=== PATIENT | male | born 1935 | race Caucasian/White ===

== ENCOUNTER 2022-04-24 09:08 | Emergency (ER) | payer OTHER ==
[~2022-04-24] VITALS: Ht 172.7 cm; Wt 68.0 kg
[~2022-04-24 09:08] MED LIST: ACET-2634 PO; ASPI-524 PO; CARB1TAB10 PO; LISI20TA PO; METF-379 PO; METO-542 PO; NIFE60TA2 PO; SELE5TAB6 PO; SIMV-46 PO
--- NOTE | 2022-04-24 09:30 | NUR ---
Patient to ER bed 3 to gown for evaluation. Side rails up. Report given to FRANCIE KAYE.
--- NOTE | 2022-04-24 09:30 | NUR ---
Patient to ER bed 3 to gown for evaluation. Side rails up. Dr. Shanks at bedside examining the patient.
[2022-04-24 09:37] VITALS: BP_SYST 134
--- NOTE | 2022-04-24 09:43 | NUR ---
PATIENT CAME IN TODAY, COMPLAINED THAT AFTER HE HAD HIS BREAKFAST, STOOD UP, GOT DIZZY AND DROPPED, LEANING TOWARD THE RIGHT SIDE OF HIS BODY. SKIN TEAR TO RIGHT ELBOW NOTED.
--- NOTE | 2022-04-24 09:46 | NUR ---
TRANSPORTED VIA WHEELCHAIR TO RADIOLOGY DEPT.
--- NOTE | 2022-04-24 10:04 | NUR ---
RETURNED TO BED 3.
--- NOTE | 2022-04-24 12:11 | NUR ---
Pt is laying in bed without complaint, rails up bed down. VSS
--- NOTE | 2022-04-24 12:17 | NUR ---
Pt saturation 88% administered 2 liters nasal canula: oxygen saturation 97% hr 73 bp 121/83. Pt NAD.
[2022-04-24 12:57] VITALS: BP_SYST 134
--- NOTE | 2022-04-24 12:59 | NUR ---
Patient given written and verbal discharge instructions and verbalizes understanding. ER MD discussed with patient the results and treatment provided. Patient in stable condition. ID arm band removed. IV catheter removed intact and dressing applied, no active bleeding. Opportunity for questions provided and answered. Medication side effect fact sheet provided.
== END 2022-04-24 12:57 | disposition home or self-care (01) ==
LOC: SED 09:08
DX: S50.01XA Contusion of right elbow, initial encounter (principal); S09.90XA Unspecified injury of head, initial encounter; E11.9 Type 2 diabetes mellitus without complications; I10 Essential (primary) hypertension; Z79.899 Other long term (current) drug therapy; W18.30XA Fall on same level, unspecified, initial encounter; Y93.89 Activity, other specified; Y92.89 Other specified places as the place of occurrence of the external cause; Y99.8 Other external cause status
CPT/HCPCS: 70450-TC; 72125-TC; 72192-TC; 76376; 99284